=== PATIENT | female | born 1980 | race Hispanic/Latino ===

== ENCOUNTER 2020-07-21 18:25 | Emergency (ER) | payer OTHER, SELFPAY ==
--- OUTSIDE RECORDS SUMMARY | 2020-07-21 18:28 | XMS REPORT | Clinical Summary ---
:1980 Author Organization [facility] Address [address] [place] [address] Care Team Providers Name Role Phone Asked, No Pcp Primary Care Provider Unavailable Allergies No Known Active Allergies Medications No known medications Active Problems Not on file Social History Tobacco Use Types Packs/Day Years Used Date Current Some Day Smoker Cigarettes Smokeless Tobacco: Never Used Comments: 1/2 pack a week Alcohol Use Drinks/Week oz/Week Comments Yes occassionally Sex Assigned at Date Recorded Not on file Last Filed Vital Signs Not on file Plan of Treatment Health Maintenance Due Date Last Done Comments CERVICAL CANCER SCREENING 2003 INFLUENZA VACCINE 06/29/2020 Results Not on fileafter 07/21/2019 Advance Directives For more information, please contact: [phone] Type Date Recorded Patient Psych Arnp Explanati on Advance Directives, Living Will 12/30/2018 6:25 PM and Medical Power of Master At Arms
--- NOTE | 2020-07-21 20:14 | RAD REPORT ---
EXAM DESCRIPTION: CT - Head Brain Wo Cont - 07/21/2020 8:07 pm CLINICAL HISTORY: HEADACHE Headache, drowsiness COMPARISON: No comparisons TECHNIQUE: All CT scans are performed using dose optimization technique as appropriate and may inclu de automated exposure control or mA/KV adjustment according to patient size. FINDINGS: No intracranial hemorrhage, hydrocephalus or extra-axial fluid collection.No areas of brai n edema or evidence of midline shift. Mild fluid is seen in the ethmoid air cells and sphenoid sinus. The calvarium is intact. IMPRESSION: No acute intracranial abnormality.
[2020-07-21] MEDS ORDERED: KETOROLAC 30 MG/ML INJ ONE (22:27)
[2020-07-21] MEDS ORDERED: NA CHLORIDE 0.9% 1,000 ML ONE (22:27)
[2020-07-21] MEDS ORDERED: PROMETHAZINE INJ 25 MG/ML AMP ONE (22:27)
--- NOTE | 2020-07-22 00:52 | ER ---
Nurse's Notes [facility] Name: Jeanette Hutchins Age: 39 yrs Sex: Female : 1980 Arrival Date: 07/21/2020 Time: 18:28 Bed 13 Private MD: Diagnosis: Headache;Essential (primary) hypertension Presentation: 07/21 18:49 Chief complaint: Patient states: Migraine started today, L eye redness noticed today. ca1 Elevated BP has been persistently high since 6 months. Highest BP 180/90. Denies dizziness, nausea at this time. Coronavirus screen: Client denies travel out of the [place] in the last 14 days. At this time, the client does not indicate any symptoms associated with coronavirus-19. Ebola Screen: Patient negative for fever greater than or equal to 101.5 degrees Fahrenheit, and additional compatible Ebola Virus Disease symptoms Patient denies exposure to infectious person. Patient denies travel to an Ebola-affected area in the 21 days before illness onset. No symptoms or risks identified at this time. Initial Sepsis Screen: Does the patient meet any 2 criteria? No. Patient's initial sepsis screen is negative. Does the patient have a suspected source of infection? No. Patient's initial sepsis screen is negative. Risk Assessment: Do you want to hurt yourself or someone else? Patient reports no desire to harm self or others. Onset of symptoms was July 21, 2020. 18:49 Method Of Arrival: Ambulatory ca1 18:49 Acuity: HONG 3 ca1 Triage Assessment: 20:41 Headache History: The patient has had previous headaches and this one is similar to jd3 previous episodes. General: Appears uncomfortable. Pain: Pain at worst was 10 out of 10 on a pain scale. Pain began gradually, Also complains of photophobia. 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 - Social history:: Smoking status: Patient reports the use of cigarette tobacco products, cigars. Screenin:40 Abuse screen: Denies threats or abuse. Nutritional screening: No deficits noted. jd3 Tuberculosis screening: No symptoms or risk factors identified. VAN Screening: Arm Drift: Patient shows no arm weakness. Patient is VAN negative. Fall Risk Ambulatory Aid- None/Bed Rest/Nurse Assist (0 pts). Gait- Normal/Bed Rest/Wheelchair (0 pts) Mental Status- Oriented to own ability (0 pts). Total Riley Fall Scale indicates No Risk (0-24 pts). Assessment: 20:37 General: Appears in no apparent distress. uncomfortable, Behavior is calm, cooperative, jd3 appropriate for age. Pain: Complains of pain in head Quality of pain is described as pressure, sharp. Neuro: Level of Consciousness is awake, alert, obeys commands, Oriented to person, place, time, situation, Brake Shoe Rebuilder are equal bilaterally Moves all extremities. Full function Gait is steady, Speech is normal, Facial symmetry appears normal, Pupils are PERRLA, Intact Reports dizziness, that comes and goes that started yesterday. Cardiovascular: Denies chest pain, Heart tones S1 S2 present Capillary refill < 3 seconds Patient's skin is warm and dry. Respiratory: Airway is patent Respiratory effort is even, unlabored, Respiratory pattern is regular, symmetrical, Breath sounds are clear bilaterally. GI: No signs and/or symptoms were reported involving the gastrointestinal system. : No signs and/or symptoms were reported regarding the genitourinary system. EENT: Sclera/Cornea are reddened in left eye. Derm: Skin is intact, Skin is dry, Skin is normal, Skin temperature is warm. Musculoskeletal: Circulation, motion, and sensation intact. Range of motion: intact in all extremities. 21:40 Reassessment: Patient appears in no apparent distress at this time. Patient and/or jd3 family updated on plan of care and expected duration. Pain level reassessed. Patient is alert, oriented x 3, equal unlabored respirations, skin warm/dry/pink. 22:46 Reassessment: Patient appears in no apparent distress at this time. Patient and/or jd3 family updated on plan of care and expected duration. Pain level reassessed. Patient is alert, oriented x 3, equal unlabored respirations, skin warm/dry/pink. 23:45 Reassessment: Patient appears in no apparent distress at this time. Patient and/or jd3 family updated on plan of care and expected duration. Pain level reassessed. Patient is alert, oriented x 3, equal unlabored respirations, skin warm/dry/pink. Vital Signs: 18:49 BP 122 / 79; Pulse 71; Resp 16 S; Temp 97.9(TE); Pulse Ox 99% on R/A; Weight 61.23 kg ca1 (R); Height 4 ft. 11 in. (149.86 cm) (R); 20:41 BP 148 / 75; Pulse 63; Resp 17 S; Pulse Ox 99% on R/A; jd3 23:46 BP 102 / 79; Pulse 65; Resp 17 S; Pulse Ox 100% on R/A; jd3 07/22 00:32 BP 104 / 77; Pulse 66; Resp 17; Temp 97.7; Pulse Ox 100% on R/A; sg 07/21 18:49 Body Mass Index 27.27 (61.23 kg, 149.86 cm) ca1 ED Course: 07/21 18:28 Patient arrived in ED. as 18:54 Triage completed. ca1 18:55 Arm band placed on right wrist. ca1 20:07 CT Head Brain wo Cont In Process Unspecified. EDMS 20:33 Carlyle Fields, RN is Primary Nurse. jd3 20:40 Patient has correct armband on for positive identification. Bed in low position. Call jd3 light in reach. Side rails up X 1. Adult w/ patient. air pollution engineer on. Pulse ox on. NIBP on. 21:36 Carmelita Lopez FNP-C is PHCP. snw 21:36 Ab Lindsey MD is Attending Physician. snw 22:13 Inserted saline lock: 20 gauge in left antecubital area, using aseptic technique. dh4 23:47 No provider procedures requiring assistance completed. jd3 23:53 Primary Nurse role handed off by Carlyle Fields, ANKUR sg 23:53 Roly Renee, ANKUR is Primary Nurse. sg 07/22 01:13 IV discontinued, intact, bleeding controlled, No redness/swelling at site. Pressure dm5 dressing applied. Administered Medications: 07/21 22:24 Drug: NS 0.9% 1000 ml Route: IV; Rate: 1 bolus; Site: left antecubital; jd3 22:24 Drug: TORadol 30 mg Route: IVP; Site: left antecubital; jd3 22:24 Drug: Phenergan 25 mg Route: IVP; Site: left antecubital; jd3 Outcome: 07/22 00:52 Discharge ordered by . rain 01:13 Discharged to home ambulatory, with family. dm5 01:13 Condition: good 01:13 Discharge instructions given to patient, family, Instructed on discharge instructions, follow up and referral plans. medication usage, Demonstrated understanding of instructions, follow-up care, medications, Prescriptions given X 2. 01:13 Patient left the ED. dm5 Signatures: Dispatcher [employer] EDMS Hannah Logan, RN ANKUR dm5 Roly Renee RN RN Carmelita Stanton, BARREL TURNER-C BARREL TURNER-Csnw Magaly Painter Jonathon, RN RN jd3 Zarina Diaz RN RN [facility] Dirk Estrada [facility]
--- NOTE | 2020-07-22 00:53 | EDPHYS ---
Physician Documentation [facility] Name: Jeanette Hutchins Age: 39 yrs Sex: Female : 1980 Arrival Date: 07/21/2020 Time: 18:28 Bed 13 Private MD: MARK Physician Ab Lindsey HPI: 07/21 22:40 This 39 yrs old Female presents to ER via Ambulatory with complaints of snw Redness of Eye, High Blood Pressure, Headache, Dizziness. 22:40 The patient sustained Unknown. to the left eye, caused by an unknown mechanism. Onset: snw The symptoms/episode began/occurred gradually. Duration: the symptoms are continuous. Associated signs and symptoms: Pertinent positives: headache. Patient does not utilize any form of vision correction. Severity of symptoms: At their worst the symptoms were moderate. The patient has not experienced similar symptoms in the past. The patient has not recently seen a physician. pt states she has had headaches and high blood pressure x 6 months. 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 - Social history:: Smoking status: Patient reports the use of cigarette tobacco products, cigars. ROS: 22:39 Constitutional: Negative for fever, chills, and weight loss, ENT: Negative for injury, snw pain, and discharge, Neck: Negative for injury, pain, and swelling, Cardiovascular: Negative for chest pain, palpitations, and edema, Respiratory: Negative for shortness of breath, cough, wheezing, and pleuritic chest pain, Abdomen/GI: Negative for abdominal pain, nausea, vomiting, diarrhea, and constipation, Back: Negative for injury and pain, : Negative for injury, bleeding, discharge, and swelling, MS/Extremity: Negative for injury and deformity, Skin: Negative for injury, rash, and discoloration. 22:39 Eyes: Positive for redness, Negative for swelling, tearing, vision loss, visual disturbance. 22:39 Neuro: Positive for headache. Exam: 22:39 Constitutional: This is a well developed, well nourished patient who is awake, alert, snw and in no acute distress. Head/Face: Normocephalic, atraumatic. ENT: Nares patent. No nasal discharge, no septal abnormalities noted. Tympanic membranes are normal and external auditory canals are clear. Oropharynx with no redness, swelling, or masses, exudates, or evidence of obstruction, uvula midline. Mucous membranes moist. Neck: Trachea midline, no thyromegaly or masses palpated, and no cervical lymphadenopathy. Supple, full range of motion without nuchal rigidity, or vertebral point tenderness. No Meningismus. Chest/axilla: Normal chest wall appearance and motion. Nontender with no deformity. No lesions are appreciated. Cardiovascular: Regular rate and rhythm with a normal S1 and S2. No gallops, murmurs, or rubs. Normal PMI, no JVD. No pulse deficits. Respiratory: Lungs have equal breath sounds bilaterally, clear to auscultation and percussion. No rales, rhonchi or wheezes noted. No increased work of breathing, no retractions or nasal flaring. Abdomen/GI: Soft, non-tender, with normal bowel sounds. No distension or tympany. No guarding or rebound. No evidence of tenderness throughout. Back: No spinal tenderness. No costovertebral tenderness. Full range of motion. Skin: Warm, dry with normal turgor. Normal color with no rashes, no lesions, and no evidence of cellulitis. MS/ Extremity: Pulses equal, no cyanosis. Neurovascular intact. Full, normal range of motion. Neuro: Awake and alert, GCS 15, oriented to person, place, time, and situation. Cranial nerves II-XII grossly intact. Motor strength 5/5 in all extremities. Sensory grossly intact. Cerebellar exam normal. Normal gait. Psych: Awake, alert, with orientation to person, place and time. Behavior, mood, and affect are within normal limits. 22:39 Eyes: Periorbital structures: appear normal, Extraocular movements: no acute changes, Conjunctiva: subconjunctival hemorrhage(s), seen in the left eye, at 12 o'clock, Sclera: no appreciated abnormality. Vital Signs: 18:49 BP 122 / 79; Pulse 71; Resp 16 S; Temp 97.9(TE); Pulse Ox 99% on R/A; Weight 61.23 kg ca1 (R); Height 4 ft. 11 in. (149.86 cm) (R); 20:41 BP 148 / 75; Pulse 63; Resp 17 S; Pulse Ox 99% on R/A; jd3 23:46 BP 102 / 79; Pulse 65; Resp 17 S; Pulse Ox 100% on R/A; jd3 07/22 00:32 BP 104 / 77; Pulse 66; Resp 17; Temp 97.7; Pulse Ox 100% on R/A; sg 07/21 18:49 Body Mass Index 27.27 (61.23 kg, 149.86 cm) ca1 MDM: 07/21 21:52 Patient medically screened. jerald 07/22 00:54 Data reviewed: vital signs, nurses notes. Data interpreted: Pulse oximetry: on room air snw is 100 %. Interpretation: normal. Counseling: I had a detailed discussion with the patient and/or guardian regarding: the historical points, exam findings, and any diagnostic results supporting the discharge/admit diagnosis, radiology results, the need for outpatient follow up, to return to the emergency department if symptoms worsen or persist or if there are any questions or concerns that arise at home. Special discussion: I have referred the patient to see his PCP for further evaluation of high blood pressure. Based on the history and exam findings, there is no indication for further emergent testing or inpatient evaluation. I discussed with the patient/guardian the need to see the primary care provider for further evaluation of the symptoms. 07/21 22:43 Order name: Glucose, Ancillary Testing EDMS 07/21 19:05 Order name: CT Head Brain wo Cont; Complete Time: 21:36 snw 07/21 22:00 Order name: FSBS; Complete Time: 22:31 snw Administered Medications: 07/21 22:24 Drug: NS 0.9% 1000 ml Route: IV; Rate: 1 bolus; Site: left antecubital; jd3 22:24 Drug: TORadol 30 mg Route: IVP; Site: left antecubital; jd3 22:24 Drug: Phenergan 25 mg Route: IVP; Site: left antecubital; jd3 Disposition: 07/22/20 00:52 Discharged to Home. Impression: Headache, Essential (primary) hypertension. - Condition is Stable. - Discharge Instructions: General Headache Without Cause, Hypertension, Subconjunctival Hemorrhage, How to Take Your Blood Pressure, [id number], DASH Eating Plan, Rehydration, Adult, Managing Your Hypertension, Form - Blood Pressure Record Sheet. - Prescriptions for orphenadrine citrate 100 mg Oral Tablet Sustained Release - take 1 tablet by ORAL route 2 times per day As needed; 20 tablet. promethazine 25 mg Oral Tablet - take 1 tablet by ORAL route every 6 hours As needed; 20 tablet. - Work release form, Medication Reconciliation Form, Thank You Letter, Antibiotic Education, Prescription Opioid Use form. - Follow up: Emergency Department; When: As needed; Reason: Worsening of condition. Follow up: Private Physician; When: 2 - 3 days; Reason: Recheck today's complaints, Continuance of care, Re-evaluation by your physician. Addendum: 07/23/2020 11:09 Co-signature as Attending Physician, Ab Lindsey MD I agree with the assessment and c jones plan of care. Signatures: Dispatcher [employer] Hannah Mandel, RN ANKUR dmAb Dumont MD MD cha Waters, Shelly, INSTRUCTOR FLYING-C INSTRUCTOR FLYING-Csnw Carlyle Fields RN RN jd3 Zarina Diaz RN RN ca1 Corrections: (The following items were deleted from the chart) 07/22 01:13 00:52 07/22/2020 00:52 Discharged to Home. Impression: Headache; Essential (primary) dm5 hypertension. Condition is Stable. Forms are Medication Reconciliation Form, Thank You Letter, Antibiotic Education, Prescription Opioid Use. Follow up: Emergency Department; When: As needed; Reason: Worsening of condition. Follow up: Private Physician; When: 2 - 3 days; Reason: Recheck today's complaints, Continuance of care, Re-evaluation by your physician. snw
[2020-07-22 01:28] VITALS: TEMP 97.9
[2020-07-22 01:31] VITALS: BP 102/79; O2SAT 100
== END 2020-07-22 01:13 | disposition home or self-care (01) ==
LOC: ER 18:25
DX: I10 Essential (primary) hypertension (principal); H11.32 Conjunctival hemorrhage, left eye; F17.290 Nicotine dependence, other tobacco product, uncomplicated
CPT/HCPCS: 70450; 82947; 96374; 96375; 99284; J2550; J7030